=== PATIENT | female | born 1970 | race Caucasian/White ===

== ENCOUNTER 2016-12-26 12:24 | Observation (INO) | payer BC ==
[2016-12-26] MEDS ORDERED: Adacel (T-DAP) 0.5 ML VIAL ONE (12:53)
[2016-12-26 13:19] LABS: #Lymphocytes 1.3 thou/uL (1.20-3.40); #Monocytes 0.4 thou/uL (0.11-0.59); #Neutrophils 5.1 thou/uL (1.40-6.50); %Basophils 0.4 % (0.0-1.0); %Eosinophils 0.2 % (0.0-10.0); %Lymphocytes 18.4 % (21.0-51.0); %Monocytes 6.2 % (0.0-10.0); Hematocrit 40.9 % (36.0-47.0); Mean Platelet Volume 7.6 fL (7.4-10.4); Red Blood Cell (RBC) Count 4.22 mill/uL (4.20-5.40); White Blood Cell (WBC) Count 6.9 thou/uL (4.8-10.8)
--- NOTE | 2016-12-26 13:32 | RAD ---
CHEST ONE VIEW HISTORY: Emergency exam. Hypotension. COMPARISON: None. FINDINGS: Lungs are clear. No pneumothorax or effusion. Cardiac silhouette and mediastinal contours are norm al. IMPRESSION: No acute cardiopulmonary process. POS: [facility]
--- NOTE | 2016-12-26 13:39 | CT ---
CT HEAD: INDICATION: Emergency exam. Syncope. FINDINGS: No evidence of ventriculomegaly, mass effect, midline shift, or an acute intracranial hemorrhage. IMPRESSION: No acute intracranial abnormalities. POS: [facility]
[2016-12-26 13:44] LABS: ALT (SGPT) 11 U/L (8-55); AST (SGOT) 12 U/L (5-34); Alkaline Phosphatase 66 U/L (40-150); Anion Gap 17 mmol/L (10-20); BUN (Urea Nitrogen) 18 mg/dL (7.0-18.7); Bilirubin, Total 0.4 mg/dL (0.2-1.2); CK (CPK) 88 U/L (29-168); Calc. Creatinine Clearance 0 mL/min (70-130); Calcium 8.8 mg/dL (7.8-10.44); Carbon Dioxide 23 mmol/L (22-29); Chloride 105 mmol/L (98-107); Estimated GFR-MDRD 81; Globulin 2.6 g/dL (2.4-3.5); Protein, Total 6.7 g/dL (6.0-8.3)
[2016-12-26 13:48] LABS: Troponin I Less than 0.010 ng/mL (< 0.028)
--- NOTE | 2016-12-26 13:51 | CT ---
CERVICAL SPINE CT NONCONTRAST CLINICAL HISTORY: Syncopal episode, neck injury. FINDINGS: There is mild multiple degenerative changes at the cervical spine without acute fracture or subluxat ion. Mild nonspecific heterogeneity of the incidentally imaged thyroid gland. IMPRESSION: 1. No acute osseous abnormality of the cervical spine. 2. Mild heterogeneity of the thyroid gland. This may be further assessed with follow-up dedicated t hyroid ultrasound. POS: [facility]
[2016-12-26 17:08] LABS: Troponin I Less than 0.010 ng/mL (< 0.028)
[2016-12-26] MEDS ORDERED: HYDROcodone/Acetaminophen 10/325 mg Tablet PO PRN (17:22)
[2016-12-26] MEDS ORDERED: Acetaminophen 325 MG TAB PO PRN (17:22)
[2016-12-26] MEDS ORDERED: Enoxaparin Sodium 40 MG/0.4 ML SYRINGE SC SCH (17:22)
[2016-12-26] MEDS ORDERED: Ondansetron ODT 4 MG TAB PO PRN (17:22)
[2016-12-26] MEDS ORDERED: HYDROcodone/Acetaminophen 5/325 mg Tablet PO PRN (17:22)
--- NOTE | 2016-12-26 17:22 | HP ---
PRIMARY CARE PHYSICIAN: Dr. Juan Lyles. CHIEF COMPLAINT: Syncope. HISTORY OF PRESENT ILLNESS: Ms. 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 She was outstanding, having a smoke break today. She started to feel a little lightheaded and walke d towards her car. Before she got there, she felt the blackness close in and completely blacked out . She did fall and hit her head witnessed. Her boss saw her and did not see any tonic-clonic activ ity per the patient, a coworker who happens to be a nurse there in one of the clinics said she had a little bit of a head tremor or head twitching. There was no bowel or bladder incontinence, no tong ue biting. The patient had no postictal phase. Her eyes were open the entire time and she had no r apid eye movements and does not remember any preceding aura. EMS was called. On arrival, blood pressure was 130/80. At one point, it did drop to 55/30, but no mention of any bradyarrhythmias. She was brought to our emergency department for evaluation where her labs were normal except for pro lactin slightly elevated at 32.27. We will call for further workup and evaluation. PAST MEDICAL HISTORY: Depression. PAST SURGICAL HISTORY: 1. [place] teeth x4 removed in 2013. 2. Gastric sleeve procedure in 2010. Postop for gastric sleeve, she did have some presyncope sympt oms, was attributed to vitamin deficiency in which she actually started taking vitamins as prescribe d. She had no more episodes. 2. x1. HOME MEDICATIONS: Paxil 10 mg p.o. daily. ALLERGIES: NKDA. FAMILY HISTORY: Liver cancer in her mom and dad. She has no history of premature coronary disease and diabetes. There are multiple family members with hypertension. SOCIAL HISTORY: Significant for tobacco. She smokes around a pack a week. Use only social alcohol on occasion and no IV drug abuse. She is and her accompanies her. REVIEW OF SYSTEMS: A 10-point review of systems was performed, negative for all other systems excep t as per HPI. Specifically, denies any numbness, tingling, weakness or discoordination. PHYSICAL EXAMINATION: VITAL SIGNS: Temperature 97.3, pulse 84, blood pressure 110/77, respiratory rate 18, O2 sat 97% on room air. GENERAL: She is awake. She is alert. She is oriented x3, is a well-developed, well-nourished, whi te female, appears to be in distress. HEENT: She is normocephalic, she has a small abrasion over her left eyebrow and a small subcutaneou s hematoma present on the left frontoparietal region. Pupils equal, round, and reactive to light bi laterally, mucous membranes moist, without visible lesions. She has no thrush. There is no ecchymo sis or injury. NECK: Supple, without lymphadenopathy, JVD, or thyromegaly. She has normal carotid upstrokes, ther e are no bruits. LUNGS: Clear to auscultation bilaterally without wheezes, rales or rhonchi. She has normal chest e xcursion, good air movement. She has no prolonged expiratory phase. CARDIOVASCULAR: Normal S1, S2. She has no S3, S4. She is slightly tachycardic in the upper 90s. She has no audible murmurs. PMI is normal size and nondisplaced. ABDOMEN: Soft, it is nontender and nondistended. She has normoactive bowel sounds present in all 4 quadrants. There is no rebound, rigidity or guarding. EXTREMITIES: Show no cyanosis, no clubbing, no edema. She has 2+ peripheral pulses, dorsalis pedis and posterior tibial arteries. SKIN: Warm, moist, and well perfused without any rash or lesions. She has a normal 2-second capill óscar refill. MUSCULOSKELETAL: Normal to inspection. She has no inflamed arthritic joints. No palpable joint ef fusions or hemarthrosis. NEUROLOGIC: Cranial nerves II-XII are grossly intact. She has no focal neurologic deficit. She watts s 5/5 strength in her normal speech pattern. PSYCHIATRIC: She is oriented x3 and has excellent 2-minute recall. LABORATORY DATA: Sodium 141, potassium 4.2, chloride 105, bicarb 23, BUN 18, creatinine 0.76, and g lucose 109. Liver functions are normal. CBC showed a white count of 6.9, hemoglobin 13.1, hematocrit of 40.9, and platelet count 242,000. S he did have a CK-MB that was 0.9 and troponin I that was undetectable. Prolactin was slightly elevated at 32.27 with normal range being 5 to 26. RADIOGRAPHIC STUDIES: She had a brain CT that was negative for acute intracranial abnormality. She had a CT of the spine showed no fracture. Chest x-ray showed no acute cardiopulmonary disease. ASSESSMENT AND PLAN: 1. Syncope, new onset. This is a female who drinks a lot of caffeine and stressful job. Suspect t his likely tachyarrhythmia versus possibly bradyarrhythmia. We will place her in observation. We w ill watch her on telemetry monitoring tonight. We will get serial cardiac biomarkers and ask Cardio logy to see her. I am not sure if it would be best to obtain an echocardiogram versus a stress test or just outpatient Holter monitoring. We will have a regular diet tonight and then n.p.o. after mi dnight in case any procedures to be done. In the meantime, we will continue home Paxil and check mo rning electrolytes and CBC. 2. History of depression, on Paxil, continue. 3. Head trauma. No acute intracranial bleed. She does have a small abrasion above her eyebrow and a small hematoma on her left frontoparietal region. A CT scan was otherwise negative. We will con tinue to watch. 4. Elevated prolactin: Unsure of the significance. The patient had no evidence of seizure activit y. No postictal phase. No loss of bowel or bladder incontinence, no tonic-clonic activity, no rapi d eye movements. Suspect may be an incidental finding, if she has any new neurologic symptoms certa inly would get Neurology involved.
[2016-12-26 17:26] VITALS: BMI 29.0
[2016-12-26] MEDS: Sodium Chloride 0.9% 1,000 ML IV SCH (18:13)
[2016-12-26 20:27] LABS: Troponin I Less than 0.010 ng/mL (< 0.028)
[2016-12-26] MEDS: Famotidine 20 MG TAB PO SCH (21:23)
[2016-12-27 01:47] LABS: #Lymphocytes 1.7 thou/uL (1.20-3.40); #Monocytes 0.6 thou/uL (0.11-0.59); #Neutrophils 3.1 thou/uL (1.40-6.50); %Basophils 0.5 % (0.0-1.0); %Eosinophils 0.7 % (0.0-10.0); %Lymphocytes 31.7 % (21.0-51.0); %Monocytes 10.8 % (0.0-10.0); Hematocrit 36.2 % (36.0-47.0); Mean Platelet Volume 7.5 fL (7.4-10.4); Red Blood Cell (RBC) Count 3.75 mill/uL (4.20-5.40); White Blood Cell (WBC) Count 5.5 thou/uL (4.8-10.8)
[2016-12-27 02:11] LABS: Troponin I Less than 0.010 ng/mL (< 0.028)
[2016-12-27 02:38] LABS: Anion Gap 10 mmol/L (10-20); BUN (Urea Nitrogen) 14 mg/dL (7.0-18.7); Calc. Creatinine Clearance 133 mL/min (70-130); Calcium 8.7 mg/dL (7.8-10.44); Carbon Dioxide 27 mmol/L (22-29); Chloride 109 mmol/L (98-107); Estimated GFR-MDRD 88; Magnesium 2.3 mg/dL (1.6-2.6)
[2016-12-27] MEDS: Sodium Chloride 0.9% 1,000 ML IV SCH ×2 (04:29→14:04)
[2016-12-27 09:43] LABS: Troponin I Less than 0.010 ng/mL (< 0.028)
--- NOTE | 2016-12-27 12:11 | PDOC.PN ---
- Subjective Encounter Start Date: 12/27/16 Encounter Start Time: 09:30 Subjective: no sob or dizziness, is amb in room -: no chest pain or palp -: no family h/o seizures/brain tumors - Objective Resuscitation Status: Resuscitation Status FULL:Full Resuscitation MAR Reviewed: Yes Vital Signs & Weight: Vital Signs (12 hours) Temp Pulse Resp BP BP BP Pulse Ox 12/27/16 07:57 98.3 F 70 16 108/54 L 114/60 109/57 L 97 Weight Weight 191 lb 1 oz I&O: 12/26/16 12/27/16 12/28/16 06:59 06:59 06:59 Intake Total 1890 Balance 1890 Result Diagrams: 12/27/16 01:39 12/27/16 01:39 Phys Exam - Physical Examination HEENT: PERRLA, moist MMs Neck: no JVD, supple Respiratory: no wheezing, no rales Cardiovascular: RRR, no significant murmur Gastrointestinal: soft, non-tender, positive bowel sounds Musculoskeletal: no edema, pulses present Neurological: non-focal, moves all 4 limbs Psychiatric: A&O x 3 Dx/Plan (1) Hypotension Status: Resolved (2) Syncope Code(s): R55 - SYNCOPE AND COLLAPSE Status: Acute Qualifiers: Syncope type: unspecified Qualified Code(s): R55 - Syncope and collapse (3) Dehydration Code(s): E86.0 - DEHYDRATION Status: Resolved (4) Menopausal flushing Code(s): N95.1 - MENOPAUSAL AND FEMALE CLIMACTERIC STATES Status: Chronic - Plan bp is better this morning -: continue iv fluids -: may dc home if ok with -: lmp more than a year ago, is menopausal, will get preg test as well -: drinks 2 large cups of coffee with not much of free water intake daily * . Review of Systems - Medications/Allergies Allergies/Adverse Reactions: Allergies Allergy/AdvReac Type Severity Reaction Status Date / Time No Known Allergies Allergy Verified 12/26/16 17:03 Medications: Current Medications Acetaminophen (Tylenol) 650 mg PO Q4H PRN PRN Reason: Headache/Fever or Pain Hydrocodone Bitart/Acetaminophen ([place] 10/325) 1 tab PO Q4H PRN PRN Reason: Severe Pain (7-10) Hydrocodone Bitart/Acetaminophen ([place] 5/325) 1 tab PO Q4H PRN PRN Reason: Moderate Pain (4-6) Famotidine (Pepcid) 20 mg PO BID [facility] Last Admin: 12/26/16 21:23 Dose: 20 mg Sodium Chloride (Normal Saline 0.9%) 1,000 mls @ 100 mls/hr IV .Q10H [facility] Last Admin: 12/27/16 04:29 Dose: 1,000 mls Ondansetron HCl (Zofran Odt) 4 mg PO Q6H PRN PRN Reason: Nausea/Vomiting
--- NOTE | 2016-12-27 13:13 | CON ---
DATE OF CONSULTATION: 12/27/2016 HISTORY OF PRESENT ILLNESS: The patient is a 46-year-old woman who presents for evaluation after losing consciousness. The patient has no previous cardiac history. The patient was in her usual state of health. She was outside standing for approximately 20 minutes. She was at work and slowly got weak and suddenly lost consciousness. The patient was taken to the emergency room for further evaluation. The patient did not lose control of her bladder or bowel. There was apparently no seizure-like activity. The patient has never had a previous episode of syncope. The patient denies having any fevers, chills or any acute illness. She was started on Paxil approximately 6 weeks ago. The patient was on no other medications. The patient's cardiac risk factor is tobacco abuse. PAST MEDICAL HISTORY: 1. Gastric bypass. 2. Depression. PAST SURGICAL HISTORY: Gastric sleeve procedure, wisdom tooth procedure, and C- section. MEDICATION: Paxil 10mg daily. ALLERGIES: No known drug allergies. FAMILY HISTORY: No strong family history of coronary artery disease. SOCIAL HISTORY: The patient smokes half a pack a day. REVIEW OF SYSTEMS: A 10-point systems otherwise unremarkable. No history of easy bruising or bleeding, bright red blood per rectum, hematuria or dysuria. PHYSICAL EXAMINATION: GENERAL: Thin woman in no acute distress, alert and oriented x3. VITAL SIGNS: Blood pressure was 108/54 sitting, standing 114/60, supine was 109 /57. NECK: No jugular venous distention, no carotid bruits. LUNGS: Clear to auscultation. HEART: Regular rate and rhythm, normal S1, S2. ABDOMEN: Soft, nontender. EXTREMITIES: No edema. SKIN: Warm and dry. NEUROLOGIC: Nonfocal. VASCULAR: Radial pulses are 2+. LABORATORY RESULTS: White blood count 5.5, hemoglobin 11.7, hematocrit 36.2, platelets 207. Sodium is 142, potassium 4.3, chloride 109, bicarbonate 27, BUN 14, creatinine 0.71, troponin less than 0.01, prolactin was 32. Her EKG revealed normal sinus rhythm, normal ECG. IMPRESSION: 1. Syncope of unclear etiology, possibly orthostatic. 2. Tobacco abuse. This patient presents with a syncopal episode. She will undergo treadmill test , echocardiogram and carotid ultrasound. EP will be consulted. She may need to have placement of a loop recorder. We will follow this patient with you throughout her hospitalization. [facility]
[2016-12-27] MEDS: Famotidine 20 MG TAB PO SCH (14:03)
--- NOTE | 2016-12-27 14:49 | ULT ---
CAROTID DUPLEX SONOGRAM: History: Syncope. Vascular disease. FINDINGS: Right: Mild plaque is present. Color and spectral doppler evaluation, peak systolic velocity of 92 c m/sec and IC to CC ratio of 1.0 suggests no hemodynamically significant stenosis within the extracra nial right ICA. Antegrade flow is present within the vertebral artery. Left: There is mild plaque. Color and spectral doppler evaluation, peak systolic velocity of 109 cm/ se and IC to CC ratio of 1.2 suggests no hemodynamically significant stenosis within the extracrania l left ICA. Antegrade flow is present within the intervertebral artery. IMPRESSION: No sonographic evidence of significant extracranial ICA stenosis. POS: [facility]
[2016-12-27] MEDS ORDERED: Lidocaine 1% w/Epinephrine 1:100K 20 ML VIAL ONE ×2 (17:25→17:42)
[2016-12-27 18:30] VITALS: BP 110/70; TEMP 97.9
--- NOTE | 2016-12-27 18:50 | OP ---
DATE OF SERVICE: 12/27/2016 PROCEDURE PERFORMED: Loop recorder implantation. REASON FOR PROCEDURE: Syncope and resulting in head trauma. DESCRIPTION OF PROCEDURE: The patient received subcutaneous lidocaine. After adequate local analgesia achieved, the incision was made over the left precordial area and the 4th intercostal space. With a standard kit, a Hatsize Reveal LINQ monitor was inserted and Dermabond was used for wound closure. The serial number of the device is [id number]. EBL< 5mL. CONCLUSION: Successful loop recorder implant. PLAN: Routine followup. JESSICA
--- NOTE | 2016-12-27 19:27 | DIS ---
DATE OF ADMISSION: 12/26/2016 DATE OF DISCHARGE: 12/27/2016 DISCHARGE DISPOSITION: To home. PRIMARY DISCHARGE DIAGNOSES: Syncope, unclear etiology, likely hypotension with mild to moderate dehydration. The patient is menopausal with flushing episodes. PROCEDURES DONE DURING HOSPITALIZATION: Troponin x2 negative. CT brain, no acute intracranial abnormalities. CT cervical spine, no acute fracture or dislocation. Chest x-ray showed no acute cardiopulmonary abnormalities. Echo with 2D Doppler done showed EF of 55% to 60% with no major valvular abnormalities. Carotid Doppler, no hemodynamically significant stenosis. The patient has had loop recorder implanted by Dr. Small. DISCHARGE MEDICATIONS: Paxil 10 mg p.o. daily. INPATIENT CONSULTS: Dr. Guerrero for Cardiology and Dr. Small for Electrophysiology. DISCHARGE PLAN: The patient to follow up with Dr. Dwaine Small as advised and primary care physician in 1 week. BRIEF COURSE DURING HOSPITALIZATION: The patient initially came in after she passed out and hit her face. Her initial systolic blood pressures were 55/30 and she was gently hydrated during her stay here. Telemetry did not reveal any acute abnormalities. Multiple imaging studies as mentioned above has not revealed any acute abnormalities. She has had consultation with Dr. Guerrero and Dr. Dwaine Small. She has had loop recorder implanted this evening. She needs to follow up with Dr. Dwaine Small to see if she has any arrhythmias as advised. She is otherwise hemodynamically stable, ambulating with no dizziness at present. Her systolic blood pressure at the time of discharge is 110. She is hemodynamically stable and has been cleared by specialist for discharge today. Please see a face to face documentation on [facility] for the day of discharge. JESSICA
--- NOTE | 2016-12-27 23:29 | CON ---
DATE OF SERVICE: 12/27/2016 ELECTROPHYSIOLOGY CONSULTATION REPORT REFERRING PHYSICIAN: Milan Guerrero M.D. I am seeing Ms. 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 Her problems are: 1. Acute syncopal spell. 2. The 2D echo 55% to 60%, no structural heart disease. 3. History of morbid obesity, status post gastric sleeve procedure in 2010. ALLERGIES: None. HOME MEDICATIONS: Paxil. SUBJECTIVE: Ms. Lilly was walking in the parking lot when suddenly she blacked out, she fell down, hit her head, a fall that was witnessed. Her boss saw her and did not report any tonic-clonic seizure activity or incontinence. She might have had some head twitching moves. No tongue biting was noted. She has no postictal confusion, also not much prodrome was noted. This is her first loss of consciousness. She had some dizzy spells after her gastric sleeve procedure and a significant weight loss associated with that. She has no fever, chills, or cough. No stroke-like symptoms. No neurological deficits. No PND or orthopnea noted. REVIEW OF SYSTEMS: Rest of the 12-point system otherwise unremarkable. PAST MEDICAL HISTORY: As above. SOCIAL HISTORY: The patient denies ETOH or drug abuse, but does smoke. FAMILY HISTORY: Noncontributory. OBJECTIVE DATA: VITAL SIGNS: Blood pressure 100/64, heart rate 76, respiratory rate is 14, temperature 98.6 degrees Fahrenheit. Orthostatic blood pressures were tested today and were negative for a blood pressure drop. GENERAL: Alert and oriented woman in no apparent distress. NECK: Supple. Jugular veins not distended. CHEST: Coarse, no crackles. CARDIOVASCULAR: Heart sounds are regular to rate and rhythm. No murmur or gallop. ABDOMEN: Benign. Bowel sounds positive. EXTREMITIES: Lower extremities without edema, clubbing, or cyanosis. DATABASE: The EKGs reviewed revealing sinus rhythm, rate of 76 beats per minute , no ST-T changes. Normal IL, QRS 90 milliseconds, QTC is 465 milliseconds. Subsequent telemetry strips reveal normalized QT intervals. No significant arrhythmias. Treadmill stress test was also performed and was negative. Carotid ultrasound likewise. Echo was negative. LABORATORY DATA: Reveals normal CBC initially, normal electrolytes, cardiac enzymes are negative. ASSESSMENT AND PLAN: Mr. Lilly is a 46-year-old woman with a history of gastric sleeve surgery, smoking, some depression, but otherwise, not much cardiac history. She presented with a new significant loss of consciousness which is unexplained and unprovoked. She does not appear to be vasovagal. Arrhythmia is highly likely, although she has no structural heart disease. It will be reasonable to continue to monitor her with a loop recorder. Dr. Guerrero will proceed with a loop recording implant. At this point, I do not see the benefit of EP study. I am happy to see her back as an outpatient if felt necessary. JESSICA
--- NOTE | 2017-01-01 10:09 | STRESS ---
Acquisition Time: 2016-12-27 13:02:49 Total Exercise Time: 00:09:00 Test Indications: CHEST PAIN Medications: Protocol: TOBIAS Max HR: 151 BPM 87% of Pred: 172 BPM Max BP: 142/066 mmHG Max Work Load: 10.1 METS THE PATIENT EXERCISED ON A TOBIAS PROTOCOL. PEAK HEART RATE = 149 BPM AND TARGET HEART RATE = 149 BPM. SHE DID NOT DEVELOP CHEST PAIN. THERE WAS NO SIGNIFICANT ST DEPRESSION. NEGATIVE EXERCISE TREADMILL TEST BY ECG CRITERIA FOR ISCHEMIA. Confirmed by NELLIE LUNDBERG ([id number]), news videotape editor BASIM MARTIN ([id number]) on 01/01/2017 10:08:51 AM Referred By: MD Bismark LUNDBERG Confirmed By:NELLIE LUNDBERG
--- NOTE | 2017-01-04 16:40 | EKG ---
Test Reason : Blood Pressure : / mmHG Vent. Rate : 076 BPM Atrial Rate : 076 BPM P-R Int : 150 ms QRS Dur : 090 ms QT Int : 414 ms P-R-T Axes : 040 066 040 degrees QTc Int : 465 ms Sinus rhythm with Premature atrial complexes Otherwise normal ECG Confirmed by FRANKI BARGER, RASTA ([id number]), editorial assistant TRUE BANUELOS ([id number]) on 01/04/2017 4:40:44 PM Referred By: Confirmed By:RASTA DOAN MD
== END 2016-12-27 19:55 | disposition home or self-care (01) ==
LOC: ERS 12:24 → 2SW 15:53
PROVIDERS: ADMIT Internal Medicine Infectious Disease; ATTEND Internal Medicine Infectious Disease
PROC: 0JH632Z Insertion of Monitoring Device into Chest Subcutaneous Tissue and Fascia, Percutaneous Approach (ICD-10-PCS; principal; 2016-12-27)
DX: R55 Syncope and collapse (principal); E86.0 Dehydration; N95.1 Menopausal and female climacteric states; F17.210 Nicotine dependence, cigarettes, uncomplicated; F32.9 Major depressive disorder, single episode, unspecified; S09.90XA Unspecified injury of head, initial encounter; Z79.899 Other long term (current) drug therapy; Z98.84 Bariatric surgery status; Z98.818 Other dental procedure status; Z98.890 Other specified postprocedural states; Z80.0 Family history of malignant neoplasm of digestive organs
CPT/HCPCS: 33282; 36415; 70450; 71010; 72125; 80048; 80053; 81025; 82533; 82553; 83735; 84146; 84484; 85025; 90471; 90715; 93005; 93017; 93306; 93880; 96372; C1764; G0378; J1650; J2001

== ENCOUNTER 2017-09-15 17:22 | Outpatient (CLI) | payer BC ==
[2017-09-15 18:14] LABS: Hemoglobin 13.3 g/dL (12.0-16.0); Mean Corpuscular HGB CONC 35.4 g/dL (32.0-36.0); Mean Corpuscular Volume 93.2 fL (78.0-98.0); Mean Platelet Volume 7.7 fL (7.4-10.4); Platelet Count 248 thou/uL (130-400); RBC Distribution Width 11.1 % (11.5-14.5); Red Blood Cell (RBC) Count 4.04 mill/uL (4.20-5.40); White Blood Cell (WBC) Count 6.4 thou/uL (4.8-10.8)
[2017-09-15 18:20] LABS: INR-International Normal Ratio 0.9; Prothrombin Time 12.3 SEC (12.0-14.7)
[2017-09-15 18:21] LABS: PTT 25.9 SEC (22.9-36.1)
[2017-09-15 18:31] LABS: Anion Gap 14 mmol/L (10-20); BUN (Urea Nitrogen) 15 mg/dL (7.0-18.7); Calc. Creatinine Clearance 0 mL/min (70-130); Calcium 9.6 mg/dL (7.8-10.44); Carbon Dioxide 27 mmol/L (22-29); Chloride 102 mmol/L (98-107); Estimated GFR-MDRD 73; Glucose 91 mg/dL (70-105); Sodium 139 mmol/L (136-145)
== END 2017-09-15 17:23 | disposition home or self-care (01) ==
LOC: LABBT 17:22
PROVIDERS: ATTEND Internal Medicine Cardiovascular Disease
DX: Z01.812 Encounter for preprocedural laboratory examination (principal); R55 Syncope and collapse
CPT/HCPCS: 80048; 85027; 85610; 85730

== ENCOUNTER → 2017-09-22 | Day surgery (SDC) | payer BC ==
[2017-09-15 17:29] VITALS: BMI 29.6
[~2017-09-22] MED LIST: Lidocaine 1% w/Epinephrine 1:100K 20 ML VIAL ONE
--- NOTE | 2017-09-22 11:41 | OP ---
DATE OF PROCEDURE: 09/22/2017 SURGEON: Dr. Dwaine Small PROCEDURE: Loop recorder removal. REASON FOR PROCEDURE: Ms. Lilly is a 47-year-old female with a history of syncope and mild LV dysfunc tion. She had a loop recorder inserted in the past for monitoring, no recurrence of seeing an arrhyt hmia occurred. At this point she wishes to have the loop recorder removed. PROCEDURE: The left precordial area was prepped, draped and anesthetized using subcutaneous lidocain e after adequate prep and drape. The incision was made over the LINQ recorder and the LINQ recorder was carefully removed. Hemostasis was obtained with pressure and Dermabond and Steri-Strips were use d for wound closure. CONCLUSION: Successful loop recording explant. PLAN: Routine followup.
== END ==
LOC: SDC 07:16
PROVIDERS: ATTEND Internal Medicine Cardiovascular Disease
PROC: 0JPT02Z Removal of Monitoring Device from Trunk Subcutaneous Tissue and Fascia, Open Approach (ICD-10-PCS; principal; 2017-09-22)
DX: Z45.09 Encounter for adjustment and management of other cardiac device (principal); E66.9 Obesity, unspecified; Z79.52 Long term (current) use of systemic steroids; Z79.899 Other long term (current) drug therapy; Z88.0 Allergy status to penicillin; Z68.29 Body mass index [BMI] 29.0-29.9, adult
CPT/HCPCS: 33284; J2001

== ENCOUNTER 2018-03-05 15:10 | Outpatient (CLI) | payer BC ==
--- NOTE | 2018-03-05 16:10 | ULT ---
SONOGRAM LEFT AXILLA: History: Left axilla area lump. FINDINGS: Sonographic evaluation of the left axilla in the region of palpable concern was performed. Subcutaneo us tissue and underlying musculature were apparent. No solid or cystic masses. IMPRESSION: No sonographic evidence of left axillary mass. POS: [facility]
== END 2018-03-05 15:11 | disposition home or self-care (01) ==
LOC: BICMAMMO 15:10
PROVIDERS: ATTEND Obstetrics & Gynecology
DX: Z12.31 Encounter for screening mammogram for malignant neoplasm of breast (principal); R22.2 Localized swelling, mass and lump, trunk; Z80.7 Family history of other malignant neoplasms of lymphoid, hematopoietic and related tissues; Z80.3 Family history of malignant neoplasm of breast
CPT/HCPCS: 76999; 77063; 77067